=== PATIENT | female | born 1960 | race Caucasian/White ===

== ENCOUNTER 2018-03-06 14:28 | Outpatient (CLI) | payer MEDICARE ==
--- NOTE | 2018-03-06 16:31 | MRI ---
MRI THORACIC SPINE PERFORMED WITHOUT CONTRAST ENHANCEMENT: Date: 03/06/18 HISTORY: Back pain. History of kyphoplasty. FINDINGS: Kyphoplasty changes are noted at the T5 vertebral body with some minimal wedge deformity. No marrow e lianne change is seen associated with this. The remainder of the vertebral bodies are normal in height. No additional compression fracture is seen. There are no signs of any significant disc bulge at any of the vertebral body levels. Cord signal robb nge is normal. No paravertebral abnormality is seen. IMPRESSION: Kyphoplasty changes at T5. No evidence of any significant bony retropulsion. 1-2 mm of anterolisthesi s of T4 on T5 is associated with the compression deformity. No evidence of any canal or foraminal zack nosis. POS: [facility]
== END 2018-03-06 14:29 | disposition home or self-care (01) ==
LOC: TBSIIMAG 14:28
PROVIDERS: ATTEND Orthopaedic Surgery
DX: M43.14 Spondylolisthesis, thoracic region (principal); Z98.890 Other specified postprocedural states
CPT/HCPCS: 72146

== ENCOUNTER 2019-07-19 14:43 | Outpatient (CLI) | payer MEDICARE ==
--- NOTE | 2019-07-26 10:54 | MMO ---
Bilateral MAMMO Bilat Screen [facility]. CLINICAL HISTORY: Patient is 58 years old and is seen for screening. The patient has no family history of breast cancer. The patient has no personal history of cancer. VIEWS: The views performed were: bilateral craniocaudal with tomosynthesis and bilateral mediolateral oblique with tomosynthesis. FILMS COMPARED: The present examination has been compared to prior imaging studies performed at [facility] on 12/08/2008, 01/22/2011 and 10/09/2015. This study has been interpreted with the assistance of computer-aided detection. MAMMOGRAM FINDINGS: The breasts are almost entirely fat. There are no suspicious masses, suspicious calcifications, or new areas of architectural distortion. IMPRESSION: THERE IS NO MAMMOGRAPHIC EVIDENCE OF MALIGNANCY. A ROUTINE FOLLOW-UP MAMMOGRAM IN 1 YEAR IS RECOMMENDED. THE RESULTS OF THIS EXAM WERE SENT TO THE PATIENT. ACR BI-RADS Category 1 - Negative MAMMOGRAPHY NOTE: 1. A negative mammogram report should not delay a biopsy if a dominant of clinically suspicious mass is present. 2. Approximately 10% to 15% of breast cancers are not detected by mammography. 3. Adenosis and dense breasts may obscure an underlying neoplasm. Reported by: JOSE ANTONIO COE MD Electonically Signed: [id number]
== END 2019-07-19 14:44 | disposition home or self-care (01) ==
LOC: BICMAMMO 14:43
PROVIDERS: ATTEND Family Medicine
DX: Z12.31 Encounter for screening mammogram for malignant neoplasm of breast (principal)
CPT/HCPCS: 77063; 77067

== ENCOUNTER 2021-06-13 12:59 | Outpatient (CLI) | payer MEDICARE | END 2021-06-13 13:00 | disposition home or self-care (01) | LOC: BICMAMMO 12:59 | PROVIDERS: ATTEND Family Medicine | DX: Z12.31 Encounter for screening mammogram for malignant neoplasm of breast (principal) | CPT/HCPCS: 77063; 77067 ==

== ENCOUNTER 2024-03-31 13:42 | Outpatient (CLI) | payer MEDICARE | END 2024-03-31 13:43 | disposition home or self-care (01) | LOC: BICMAMMO 13:42 | PROVIDERS: ATTEND Family Medicine | DX: Z12.31 Encounter for screening mammogram for malignant neoplasm of breast (principal) | CPT/HCPCS: 77063; 77067 ==